=== PATIENT | female | born 1975 | race Caucasian/White ===

== ENCOUNTER → 2016-12-26 | Outpatient (CLI) | payer OTHER ==
--- NOTE | 2016-12-26 09:57 | Diagnostic Imaging Report ---
INDICATION: Abnormal exam bleeding. FINDINGS: The bladder is empty at the time of the exam and is not evaluated. Uterus is retroflexed and measures 10.5 x 8.5 x 6.8 CM. It has slightly heterogeneous myometrium with no discrete mass. The endometrial stripe is mildly thickened. The right ovary is 1.9 x 1.8 x 2.5 CM. The left ovary is 3.6 x 3 x 3.8 CM. 2.4 cm dominant follicle is seen with a small amount of free fluid is noted in the left adnexa. Arterial and venous waveforms are demonstrated in the ovaries. IMPRESSION: There is mild thickening of the endometrial stripe. Consider possibility of endometrial hyperplasia, polyp or less likely carcinoma. Dictated by: Dictated on workstation # [id number]
--- NOTE | 2016-12-26 10:24 | Diagnostic Imaging Report ---
PROCEDURE: US abdomen complete. TECHNIQUE: Multiple real-time grayscale images were obtained over the abdomen in various projections. INDICATION: Abdominal pain. FINDINGS: The area of the pancreas is obscured by bowel gas. The liver is fairly homogeneous with no focal mass. It is normal in size. The color Doppler evaluation demonstrates hepatopetal flow. The CBD is obscured by bowel gas. The gallbladder has been removed. The spleen is 11.3 cm in length, normal. The IVC and the abdominal aorta appear unremarkable. The right kidney is 9.2 cm. The left kidney is 12.0 cm. There is moderate left hydronephrosis. No ascites or other fluid collection seen in the abdomen. IMPRESSION: There is moderate left hydronephrosis. Findings were called to Dr. Opal Rodrigues by Dr. Gallego at time of dictation. Dictated by: Dictated on workstation # [id number]
== END ==
LOC: RAD 07:43
PROVIDERS: ATTEND Obstetrics & Gynecology
DX: N13.30 Unspecified hydronephrosis (principal)
CPT/HCPCS: 76700; 76830; 76856

== ENCOUNTER 2017-01-21 08:53 | Outpatient (CLI) | payer OTHER ==
[~2017-01-21] VITALS: Ht 172.7 cm; Wt 98.4 kg
[2017-01-21] MEDS ORDERED: MULT1TAB69 PO (09:04)
[2017-01-21] MEDS ORDERED: FERR-84 PO (09:04)
[2017-01-21] MEDS ORDERED: DOCU-143 PO (09:04)
[2017-01-21 09:06] VITALS: BP 127/87
[2017-01-21 09:30] LABS: BASOPHILS % (AUTO) 1 % (0-10); EOSINOPHILS % (AUTO) 1 % (0-10); LYMPHOCYTES # (AUTO) 2.2 X 10^3 (1.0-4.0); LYMPHOCYTES % (AUTO) 35 % (12-44); MEAN CORPUSCULAR HEMOGLOBIN 26 PG (25-34); MEAN CORPUSCULAR HGB CONC 33 G/DL (32-36); MEAN CORPUSCULAR VOLUME 79 FL (80-99); MEAN PLATELET VOLUME 9.9 FL (7.4-10.4); MONOCYTES # (AUTO) 0.4 X 10^3 (0.0-1.0); MONOCYTES % (AUTO) 6 % (0-12); NEUTROPHILS # (AUTO) 3.7 X 10^3 (1.8-7.8); NEUTROPHILS % (AUTO) 58 % (42-75); PLATELET COUNT 276 10^3/uL (130-400); RED BLOOD COUNT 4.73 10^6/uL (4.35-5.85); RED CELL DISTRIBUTION WIDTH 15.5 % (10.0-14.5); WHITE BLOOD COUNT 6.4 10^3/uL (4.3-11.0)
[2017-01-21 09:31] LABS: BILIRUBIN,URINE NEGATIVE (NEGATIVE); KETONES,URINE NEGATIVE (NEGATIVE); LEUKOCYTE ESTERASE ,URINE NEGATIVE (NEGATIVE); NITRITE,URINE NEGATIVE (NEGATIVE); PH,URINE 7 (5-9); PROTEIN,URINE 1+ (NEGATIVE); UROBILINOGEN,URINE NORMAL (NORMAL)
[2017-01-21 09:43] LABS: WBC,URINE RARE /HPF
== END 2017-01-21 09:25 | disposition home or self-care (01) ==
LOC: PREOP 08:53
PROVIDERS: ATTEND Obstetrics & Gynecology
DX: Z01.812 Encounter for preprocedural laboratory examination (principal); N92.0 Excessive and frequent menstruation with regular cycle; N81.9 Female genital prolapse, unspecified
CPT/HCPCS: 36415; 81000; 85025; 86850; 86900; 86901; 87081

== ENCOUNTER → 2017-01-21 | Outpatient (CLI) | payer OTHER ==
[~2017-01-21] MED LIST: CATHETER FLUSH 10 ML SYR IV PRN; DOCU-143 PO; FERR-84 PO; IOHEXOL 350 MG/ML 100 ML (OMNIPAQUE 350) VIAL IV ONE; MULT1TAB69 PO; NS 100 ML (IVPB) BAG IV ONE
[2017-01-21 08:43] LABS: ANION GAP 10 MMOL/L (5-14); BLOOD UREA NITROGEN 12 MG/DL (7-18); BUN/CREATININE RATIO 16; CALCIUM 9.3 MG/DL (8.5-10.1); CARBON DIOXIDE 24 MMOL/L (21-32); CHLORIDE 108 MMOL/L (98-107); CREATININE SERUM 0.75 MG/DL (0.60-1.30); GFR ESTIMATED > 60; GLUCOSE 117 MG/DL (70-105); POTASSIUM 3.6 MMOL/L (3.6-5.0); SODIUM 142 MMOL/L (135-145)
--- NOTE | 2017-01-21 12:56 | Diagnostic Imaging Report ---
PROCEDURE: CT abdomen and pelvis with and without contrast. TECHNIQUE: Precontrast acquisitions were acquired through the abdomen and pelvis. Multiple contiguous axial images were obtained through the abdomen and pelvis after the administration of intravenous contrast. INDICATION: History of nephrolithiasis, left hydronephrosis, pain and hemorrhage. FINDINGS: There is a calculus with a diameter of 4.1 mm distal third left ureter at the level of the anterosuperior iliac spine with a density of 272 Hounsfield units resulting in mild upstream hydronephrosis and mild to moderate ureteral ectasia. No substantial perinephric or periureteric edema. There is accumulation of contrast media within the dilated left renal collecting system but no appreciable excretion of contrast through the left ureter on the delayed acquisitions. In the left adnexa, below the level of the calculus, there is a somewhat tubular fluid structure measuring 2.1 cm in length by less than 1 cm in width. This may be a small left-sided hydrosalpinx. Urinary bladder was largely empty during the study limiting its evaluation. The right kidney was unobstructed and without stone. There is adjacent intrarenal calculi within the left lower pole calyx measuring about 2 mm diameter each. The lung bases are clear. The gallbladder is absent. There is mild hepatic steatosis. The liver is otherwise negative. The spleen nonfocal. The adrenals are negative. Pancreas appeared normal. Aortoiliac and mesenteric vessels are patent and nonaneurysmal. There is no bowel obstruction. Hyperdense nodule appears to be exophytic off the distal uterine body. Uterus retroflexed in this nodule measuring 12 mm, likely a mildly exophytic fibroid. Right adnexa normal. The osseous structures and the lung bases nonacute. IMPRESSION: A distal left ureteral calculus measuring 4.1 mm diameter results in relatively mild upstream hydroureteronephrosis without significant perinephric or periureteric edema. Additional punctate 2 mm stones within the left lower pole calyx present. The bladder is empty limiting its evaluation. Probable tiny exophytic fibroid off the fundus of the retroflexed uterus. Mild hepatic steatosis. Questionable findings for small left adnexal hydrosalpinx versus elongated ovarian cyst. Dictated by: Dictated on workstation # [id number]
== END ==
LOC: RAD 08:05
PROVIDERS: ATTEND Obstetrics & Gynecology
DX: N20.2 Calculus of kidney with calculus of ureter (principal); N83.9 Noninflammatory disorder of ovary, fallopian tube and broad ligament, unspecified; R10.9 Unspecified abdominal pain
CPT/HCPCS: 36415; 74178; 80048

== ENCOUNTER → 2017-01-27 | Outpatient (CLI) | payer OTHER ==
[~2017-01-27] MED LIST changes: -CATHETER FLUSH 10 ML SYR IV PRN; -IOHEXOL 350 MG/ML 100 ML (OMNIPAQUE 350) VIAL IV ONE; -NS 100 ML (IVPB) BAG IV ONE
--- NOTE | 2017-01-27 14:06 | Diagnostic Imaging Report ---
INDICATION: Nephrolithiasis. FINDINGS: The bowel gas pattern is nonspecific. There is a questionable punctate calcification overlying the left kidney. There are no other abnormal abdominal calcifications. The osseous structures are unremarkable. IMPRESSION: Questionable punctate calcification overlying the left kidney, otherwise unremarkable. Dictated by: Dictated on workstation # [id number]
== END ==
LOC: RAD 11:07
PROVIDERS: ATTEND Obstetrics & Gynecology
DX: N20.0 Calculus of kidney (principal)
CPT/HCPCS: 74000

== ENCOUNTER → 2017-02-13 | Outpatient (CLI) | payer OTHER ==
[~2017-02-13] MED LIST changes: +IOHEXOL 300 MG/ML 100 ML (OMNIPAQUE 300) VIAL IV ONE
--- NOTE | 2017-02-13 21:37 | Diagnostic Imaging Report ---
EXAMINATION: IVP. INDICATION: Hydronephrosis of left kidney. 100 mL of Omnipaque 300 is administered intravenously. FINDINGS: There is csjl-su-dvyrogys left hydronephrosis and mild hydroureter seen to the level of the pelvis. Contrast is seen in the distal aspect of the ureter which has normal caliber. No definitive stone is visualized on this exam along the ureter. There is a 3 mm stone suggested in the lower pole of the left kidney, however. Surgical clips in the upper right abdomen seen. The right kidney demonstrates no hydronephrosis. The urinary bladder appears unremarkable. IMPRESSION: There is htsj-dg-atcszsfk left hydronephrosis with transition of ureteric caliber in the upper aspect of the distal left ureter segment. No definitive stone is identified, however. There is contrast seen in the distal left ureter precluding complete obstruction. The stone seen on CT scan from 01/21/2017 in the distal ureter is not clearly identified on this exam; however, given hydroureteronephrosis, the stone might still be present. Correlate clinically and with an unenhanced CT evaluation. Dictated on workstation # [id number]
== END ==
LOC: RAD 10:08
PROVIDERS: ATTEND Obstetrics & Gynecology
DX: N13.30 Unspecified hydronephrosis (principal)
CPT/HCPCS: 74415

== ENCOUNTER 2017-04-18 12:03 | Outpatient (CLI) | payer OTHER ==
[~2017-04-18] VITALS: Ht 172.7 cm; Wt 100.7 kg
[~2017-04-18 12:03] MED LIST changes: -IOHEXOL 300 MG/ML 100 ML (OMNIPAQUE 300) VIAL IV ONE
[2017-04-18] MEDS ORDERED: HYDR-3812 PO (12:16)
[2017-04-18 12:26] VITALS: BP 142/86
[2017-04-18 12:52] LABS: BASOPHILS % (AUTO) 0 % (0-10); EOSINOPHILS % (AUTO) 1 % (0-10); LYMPHOCYTES % (AUTO) 29 % (12-44); MEAN CORPUSCULAR HEMOGLOBIN 26 PG (25-34); MEAN CORPUSCULAR HGB CONC 32 G/DL (32-36); MEAN CORPUSCULAR VOLUME 79 FL (80-99); MEAN PLATELET VOLUME 9.9 FL (7.4-10.4); MONOCYTES # (AUTO) 0.3 X 10^3 (0.0-1.0); MONOCYTES % (AUTO) 4 % (0-12); NEUTROPHILS # (AUTO) 4.7 X 10^3 (1.8-7.8); NEUTROPHILS % (AUTO) 66 % (42-75); PLATELET COUNT 292 10^3/uL (130-400); RED BLOOD COUNT 4.74 10^6/uL (4.35-5.85); RED CELL DISTRIBUTION WIDTH 14.2 % (10.0-14.5)
[2017-04-18 12:52] LABS: BILIRUBIN,URINE NEGATIVE (NEGATIVE); KETONES,URINE NEGATIVE (NEGATIVE); LEUKOCYTE ESTERASE ,URINE 3+ (NEGATIVE); NITRITE,URINE NEGATIVE (NEGATIVE); PH,URINE 5 (5-9); PROTEIN,URINE 1+ (NEGATIVE); UROBILINOGEN,URINE NORMAL (NORMAL)
== END 2017-04-18 15:00 | disposition home or self-care (01) ==
LOC: PREOP 12:03
PROVIDERS: ATTEND Obstetrics & Gynecology
DX: Z01.812 Encounter for preprocedural laboratory examination (principal); N92.0 Excessive and frequent menstruation with regular cycle; N81.9 Female genital prolapse, unspecified
CPT/HCPCS: 36415; 81000; 85025; 86850; 86900; 86901; 87081; 87088

== ENCOUNTER 2017-09-11 19:04 | Emergency (ER) | payer OTHER ==
[~2017-09-11] VITALS: Ht 172.7 cm; Wt 102.1 kg
[~2017-09-11 19:04] MED LIST changes: +ACHD5005 PO; +BENZ56AE2 TP; +DOCU100C37 PO; +Hydrocodone Bit/Acetaminophen PO; +IBUP-1773 PO; +SIME80TA16 PO
--- OUTSIDE RECORDS SUMMARY | 2017-09-11 19:10 | XMS REPORT | Continuity of Care Document ---
Author Author [employer] Organization [facility] Address Unknown Phone Unavailable Care Team Providers Care Promotional Model Name Role Phone [employer] Unavailable Unavailable Problems Medications Allergies, Adverse Reactions, Alerts Immunizations Results Vital Signs Encounters Location Location Details Encounter Type Encounter Number Reason For Visit Attending Provider ADM Date DC Date Status Source OP SURGERY [id number] ROBERT GALVAN 03/14/20172016 Active The [facility] O Active The [facility] Procedures Plan of Care Social History Assessment and Plan Family History Advance Directives Functional Status
--- OUTSIDE RECORDS SUMMARY | 2017-09-11 19:11 | XMS REPORT ---
Author Author CAROLINE VICTOR [facility] Address [address] [place] [address] Care Team Providers Care Manager Sap Name Role Phone CAROLINE VICTOR Unavailable PROBLEMS Type Condition ICD9-CM Code [id number] Code Onset Dates Condition Status SNOMED Code Problem Obesity (BMI 30.0-34.9) E66.9 Active 720163991690825 Problem Other chronic pain G89.29 Active 99574533 Problem Primary osteoarthritis of right knee M17.11 Active 492771958 Problem Primary osteoarthritis of left knee M17.12 Active 975013222 Problem Menorrhagia with irregular cycle N92.1 Active 127007971 Problem Irregular periods/menstrual cycles N92.6 Active 79321827 Problem Iron deficiency anemia due to chronic blood loss D50.0 Active 786798278 Problem Chondromalacia patellae, 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 Active 32025245 ALLERGIES No Information ENCOUNTERS Encounter Location Date Diagnosis [facility] [address] [id number] [id number] Jul, Dental examination Z01.20 [facility] [address] [id number] [id number] Jul, Dental examination Z01.20 [facility] [address] [id number][place] [id number] 13 Jul, 2017 [facility] [address] [id number][place] [id number] Jul, Dental examination Z01.20 [facility] [id number] [place] [id number] Jul, Dental caries K02.9 [facility] [address] [id number][place] [id number] Jul, Dental examination Z01.20 [facility] [address] [id number] [place] [id number] 15 Jul, 2017 Dental examination Z01.20 [facility] [address] [facility] [id number], [place] [phone] Jun, Primary osteoarthritis of right knee M17.11 and Primary osteoarthritis of left knee M17.12 [facility] [address] [facility] [id number], [place] [address] Jun, [facility] [address] [id number][place] [id number] Jan, [facility] [address] [id number][place] [id number] Jan, Irregular periods/menstrual cycles N92.6 ; Menorrhagia with irregular cycle N92.1 ; Dysuria R30.0 ; Hydronephrosis with urinary obstruction due to renal calculus N13.2 ; Acute cystitis with hematuria N30.01 and Iron deficiency anemia due to chronic blood loss D50.[address] [facility] [address] [id number][place] [id number] Jan, [facility] [address] [id number][place] [id number] Oct, [facility] [address] [id number], [place] [id number] Oct, [facility] [address] [id number], [place] [id number] Oct, [facility] [address] [id number], [place] [id number] Oct, [facility] [address] [id number], [place] [id number] Oct, [facility] [address] [id number], [place] [id number] Oct, Urinary frequency R35.[address] [facility] [address] [id number], [place] [id number] September, [facility] [address] [id number], [place] [id number] September, Acute cystitis with hematuria N30.01 [place] [address]00565100[place] [address] 13 Aug, 2016 Chondromalacia patellae, 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 [id number], [place] [id number] Jul, Obesity (BMI 30.0-34.9) E66.9 ; Encounter for Depo-Provera contraception Z30.42 ; Menorrhagia with irregular cycle N92.1 ; Breast cancer screening Z12.39 ; Dietary counseling Z71.3 ; Exercise counseling Z71.89 and History of abnormal cervical Pap smear Z87.898 [place] [address]00565100[place] [address] Jul, [place] [address] [place] [id number] [place] [address] 14 Jul, 2016 Pain in right knee M25.561 ; Pain in left knee M25.562 ; Other chronic pain G89.29 and Left hip pain M25.[address] [id number], [place] [id number] 09 Jul, 2016 Pain in right knee M25.561 ; Pain in left knee M25.562 ; Other chronic pain G89.29 and Left hip pain M25.552 [facility] [id number], [place] [id number] Jul, Low back strain, initial encounter S39.012A [facility] [address] [id number], [place] [id number] Jun, [facility] [employer] [place], [place] [address] [id number], [place] [id number] Jun, Obesity (BMI 30.0-34.9) E66.9 ; Discomfort in chest R07.89 ; Thyroid disorder screen Z13.29 and Screening cholesterol level Z13.[address] [id number], [place] [id number] Jun, Acute non-recurrent ethmoidal sinusitis J01.20 and Discomfort in chest R07.[address] [place] [id number] May, Acute infection of right external ear H60.391 and Ear ache H92.09 [place] [id number] [place] [id number] Apr, Acute nasopharyngitis J00 and Cough R05 [facility] [address] [place] [id number] [place] [id number] Mar, Dental examination Z01.20 [facility] [address] [id number] Mar, Dental examination Z01.20 [facility] [address] [place] [id number] [place] [address] Mar, Dental caries K02.9 [facility] [address] [address] 05 Mar, 2016 Dental examination Z01.20 [place] [id number] [place] [id number] September, Pain of left thigh M79.652 [place] [id number] [place] [id number] September, [address] [id number], [place] [id number] Aug, UTI symptoms R39.9 and Environmental and seasonal allergies J30.[id number] [place] [id number] Aug, Follow-up examination Z09 ; Cellulitis, unspecified L03.90 and Abscess L02.[address] [id number], [place] [id number] Aug, Spider bite T63.301A ; Wound abscess T81.4XXA ; Pain R52 and Follow-up examination Z09 [facility] [address] [id number], [place] [id number] Aug, Abscess of chest wall L02.[address] [facility] [address] [address] [id number], [place] [id number] 08 Sep, 2015 Insect bite W57.XXXA [facility] [address] [facility] [address] [id number], [place] [id number] Apr, Dental examination Z01.20 and Dental caries, unspecified K02.9 [facility] [address]00565100[place] [address] Aug, [facility] [address] [place] [id number] [place] [address] Aug, [facility] [place] [id number] [place] [id number] Jul, [facility] [address] [place] [id number] [place] [address] Jul, [facility] [id number] [place] [address] Jan, [facility] [place] [id number] [place] [id number] Jan, [facility] [place] [id number] [place] [id number] Oct, [facility] [id number] [place] [address] 8[address] Oct, [facility] [place] [id number], [place] [id number] Oct, [facility] [address] [place] [id number] [place] [phone] Oct, [facility] [place] [id number] [place] [address] [id number] Jul, [facility] [address] [place] [address] [id number] [place] [phone] Jul, [facility] [address] [place] 88185[place] [address] September, [facility] [address]00565100[place] [address] September, [facility] [id number], [place] [id number] Jul, [facility] [address]00565100[place], [place] [id number] Jul, [facility] [address]00565100[place], [place] [id number] Jun, [facility] [address] [place] [address] [id number] [place] [address]- [address] Jun, [facility] [address] [place] [id number] [place] [address]- [phone] Jun, [facility] [address]00565100[place], [place] [id number] Jun, [address] [place] [address] [id number] Jun, [facility] [address]00565100[place] [address] May, [facility] [id number] [place] [address]- [phone] May, [facility] [address]00565100[place] [address] Apr, IMMUNIZATIONS No Known Immunizations SOCIAL HISTORY Never Assessed REASON FOR VISIT meds PLAN OF CARE VITAL SIGNS MEDICATIONS No Known Medications RESULTS No Results PROCEDURES No Known procedures INSTRUCTIONS MEDICATIONS ADMINISTERED No Known Medications MEDICAL (GENERAL) HISTORY Type Description Date Medical History 1992-Cervical CA Medical History Left hydronephrosis -Abdominal US 11/2016 Surgical History tubal ligation Surgical History cholecystectomy Surgical History lithotripsy
--- OUTSIDE RECORDS SUMMARY | 2017-09-11 19:13 | XMS REPORT | Continuity of Care Document ---
Author Author [facility] Organization [facility] Address Unknown Phone Unavailable Allergies Active Description Code Type Severity Reaction Onset Reported/Identified Relationship to Patient Clinical Status Yes No Allergy Information Available [id number] Drug Allergy Unknown N/A 2016 Yes No Known Drug Allergies [id number] Drug Allergy Unknown N/A 04/18/2017 Medications There is no data. Problems Date Dx Coded Attending Type Code Diagnosis Diagnosed By 01/29/2011 388.70 earache 01/29/2011 626.2 excessive bleeding during period (menorrhagia) 01/29/2011 SAMAYOA DO, CHAI K 388.70 earache 01/29/2011 SAMAYOA DO, CHAI K 626.2 excessive bleeding during period (menorrhagia) 01/29/2011 SAMAYOA DO, CHAI K 388.70 earache 01/29/2011 SAMAYOA DO, CHAI K 626.2 excessive bleeding during period (menorrhagia) 01/29/2011 SAMAYOA DO, CHAI K 388.70 earache 01/29/2011 SAMAYOA DO, CHAI K 626.2 excessive bleeding during period (menorrhagia) 01/29/2011 SAMAYOA DO, CHAI K 388.70 earache 01/29/2011 SAMAYOA DO, CHAI K 626.2 excessive bleeding during period (menorrhagia) 01/29/2011 SAMAYOA DO, CHAI K 388.70 earache 01/29/2011 SAMAYOA DO, CHAI K 626.2 excessive bleeding during period (menorrhagia) 02/19/2011 278.00 OBESITY 02/19/2011 SAMAYOA DO, CHAI K 278.00 OBESITY 02/19/2011 SAMAYOA DO, CHAI K 278.00 OBESITY 02/19/2011 SAMAYOA DO, CHAI K 278.00 OBESITY 02/19/2011 SAMAYOA DO, CHAI K 278.00 OBESITY 02/19/2011 SAMAYOA DO, CHAI K 278.00 OBESITY 04/22/2011 V13.22 PERSONAL HISTORY OF CERVICAL DYSPLASIA 04/22/2011 SAMAYOA DO, CHAI K V13.22 PERSONAL HISTORY OF CERVICAL DYSPLASIA 04/22/2011 SAMAYOA DO, CHAI K V13.22 PERSONAL HISTORY OF CERVICAL DYSPLASIA 04/22/2011 SAMAYOA DO, CHAI K V13.22 PERSONAL HISTORY OF CERVICAL DYSPLASIA 04/22/2011 SAMAYOA DO, CHAI K V13.22 PERSONAL HISTORY OF CERVICAL DYSPLASIA 04/22/2011 SAMAYOA DO, CHAI K V13.22 PERSONAL HISTORY OF CERVICAL DYSPLASIA 06/18/2011 719.41 joint pain, localized in the right shoulder 06/18/2011 SAMAYOA DO, CHAI K 719.41 joint pain, localized in the right shoulder 06/18/2011 SAMAYOA DO, CHAI K 719.41 joint pain, localized in the right shoulder 06/18/2011 SAMAYOA DO, CHAI K 719.41 joint pain, localized in the right shoulder 06/18/2011 SAMAYOA DO, CHAI K 719.41 joint pain, localized in the right shoulder 06/18/2011 SAMAYOA DO, CHAI K 719.41 joint pain, localized in the right shoulder 10/12/2012 381.01 OTITIS MEDIA ACUTE SEROUS LEFT EAR 10/12/2012 SAMAYOA DO, CHAI K 381.01 OTITIS MEDIA ACUTE SEROUS LEFT EAR 10/12/2012 SAMAYOA DO, CHAI K 381.01 OTITIS MEDIA ACUTE SEROUS LEFT EAR 10/12/2012 SAMAYOA DO, CHAI K 381.01 OTITIS MEDIA ACUTE SEROUS LEFT EAR 10/12/2012 SAMAYOA DO, CHAI K 381.01 OTITIS MEDIA ACUTE SEROUS LEFT EAR 10/12/2012 SAMAYOA DO, CHAI K 381.01 OTITIS MEDIA ACUTE SEROUS LEFT EAR 08/05/2013 SAMAYOA DO, CHAI K 681.02 ONYCHIA AND PARONYCHIA OF FINGER 08/05/2013 SAMAYOA DO, CHAI K 681.02 ONYCHIA AND PARONYCHIA OF FINGER 08/05/2013 SAMAYOA DO, CHAI K 681.02 ONYCHIA AND PARONYCHIA OF FINGER 08/05/2013 SAMAYOA DO, CHAI K 681.02 ONYCHIA AND PARONYCHIA OF FINGER 08/05/2013 SAMAYOA DO, CHAI K 681.02 ONYCHIA AND PARONYCHIA OF FINGER 11/02/2013 SAMAYOA DO CHAI K 611.71 MASTODYNIA 11/02/2013 SAMAYOA DO CHAI K 611.71 MASTODYNIA 11/02/2013 SAMAYOA DO, CHAI K 611.71 MASTODYNIA 11/02/2013 SAMAYOA DO, CHAI K 611.71 MASTODYNIA 11/26/2013 SAMAYOA DO, CHAI K 599.0 URINARY TRACT INFECTION SITE NOT SPECIFIED 11/26/2013 SAMAYOA DO, CHAI K 599.0 URINARY TRACT INFECTION SITE NOT SPECIFIED 11/26/2013 SAMAYOA DO, CHAI K 599.0 URINARY TRACT INFECTION SITE NOT SPECIFIED 02/24/2014 SAMAYOA DO, CHAI K 461.0 ACUTE MAXILLARY SINUSITIS 02/24/2014 SAMAYOA DO, CHAI K 461.0 ACUTE MAXILLARY SINUSITIS 07/12/2014 SAMAYOA DO, CHAI K 465.9 ACUTE UPPER RESPIRATORY INFECTIONS OF UNSPECIFIED SITE 08/20/2016 Ot 726.10 BURSAE TENDONS DIS SHLDER NOS 08/20/2016 RASHEED DOMINGUEZ L MARBLE RUBBER Ot 611.71 MASTODYNIA 12/23/2016 RASHEED DOMINGUEZ L MARBLE RUBBER Ot 611.71 MASTODYNIA 01/01/2017 ALICEA DO BARNEY C Ot N13.30 UNSPECIFIED HYDRONEPHROSIS 01/08/2017 NANETTE DOMINGUEZCY L MARBLE RUBBER Ot 611.71 MASTODYNIA 01/08/2017 ALICEA DO, BARNEY C Ot N13.30 UNSPECIFIED HYDRONEPHROSIS 01/21/2017 ANGELICA RASHEED L MARBLE RUBBER Ot 611.71 MASTODYNIA 01/21/2017 ALICEA DO, BARNEY C Ot N13.30 UNSPECIFIED HYDRONEPHROSIS 01/21/2017 ALICEA DO, BARNEY C Ot N81.9 FEMALE GENITAL PROLAPSE, UNSPECIFIED 01/21/2017 ALICEA DO, BARNEY C Ot N92.0 EXCESSIVE AND FREQUENT MENSTRUATION WITH 01/21/2017 ALICEA DO, BARNEY C Ot Z01.812 ENCOUNTER FOR PREPROCEDURAL LABORATORY E 01/22/2017 ALICEA DO, BARNEY C Ot N81.9 FEMALE GENITAL PROLAPSE, UNSPECIFIED 01/22/2017 ALICEA DO, BARNEY C Ot N92.0 EXCESSIVE AND FREQUENT MENSTRUATION WITH 01/22/2017 ALICEA DO, BARNEY C Ot Z01.812 ENCOUNTER FOR PREPROCEDURAL LABORATORY E 01/23/2017 ALICEA DO, BARNEY C Ot N81.9 FEMALE GENITAL PROLAPSE, UNSPECIFIED 01/23/2017 ALICEA DO, BARNEY C Ot N92.0 EXCESSIVE AND FREQUENT MENSTRUATION WITH 01/23/2017 ALICEA DO BARNEY C Ot Z01.812 ENCOUNTER FOR PREPROCEDURAL LABORATORY E 01/27/2017 ALICEA DO BARNEY C Ot N81.9 FEMALE GENITAL PROLAPSE, UNSPECIFIED 01/27/2017 ALICEA DO BARNEY C Ot N92.0 EXCESSIVE AND FREQUENT MENSTRUATION WITH 01/27/2017 ALICEA DO BARNEY C Ot Z01.812 ENCOUNTER FOR PREPROCEDURAL LABORATORY E 02/05/2017 ALICEA DO BARNEY C Ot N20.0 CALCULUS OF KIDNEY 02/11/2017 ALICEA DO BARNEY C Ot N20.2 CALCULUS OF KIDNEY WITH CALCULUS OF URET 02/11/2017 ALICEA DO BARNEY C Ot N83.9 NONINFLAMMATORY DISORD OF OVARY, FALLOP 02/11/2017 ALICEA DO BARNEY C Ot R10.9 UNSPECIFIED ABDOMINAL PAIN 02/11/2017 ALICEA DO BARNEY C Ot N20.0 CALCULUS OF KIDNEY 02/13/2017 RASHEED DOMINGUEZ MARBLE RUBBER Ot 611.71 MASTODYNIA 02/13/2017 ALICEA DO BARNEY C Ot N13.30 UNSPECIFIED HYDRONEPHROSIS 02/13/2017 ALICEA DO BARNEY C Ot N20.2 CALCULUS OF KIDNEY WITH CALCULUS OF URET 02/13/2017 ALICEA DO BARNEY C Ot N83.9 NONINFLAMMATORY DISORD OF OVARY, FALLOP 02/13/2017 ALICEA DO BARNEY C Ot R10.9 UNSPECIFIED ABDOMINAL PAIN 02/13/2017 ALICEA DO BARNEY C Ot N20.0 CALCULUS OF KIDNEY 02/25/2017 ALICEA DO BARNEY C Ot N13.30 UNSPECIFIED HYDRONEPHROSIS 04/18/2017 ALICEA DO BARNEY C Ot N81.9 FEMALE GENITAL PROLAPSE, UNSPECIFIED 04/18/2017 ALICEA DO BARNEY C Ot N92.0 EXCESSIVE AND FREQUENT MENSTRUATION WITH 04/18/2017 ALICEA DO BARNEY C Ot Z01.812 ENCOUNTER FOR PREPROCEDURAL LABORATORY E 04/23/2017 DEANNE BAILEY BARNEY C Ot E66.9 OBESITY, UNSPECIFIED 04/23/2017 ALICEA DO BARNEY C Ot N73.6 FEMALE PELVIC PERITONEAL ADHESIONS (POST 04/23/2017 ALICEA DO, BARNEY C Ot N81.3 COMPLETE UTEROVAGINAL PROLAPSE 04/23/2017 ALICEA DO, BARNEY C Ot N81.4 UTEROVAGINAL PROLAPSE, UNSPECIFIED 04/23/2017 ALICEA DO, BARNEY C Ot 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 04/23/2017 ALICEA DO, BARNEY C Ot N92.1 EXCESSIVE AND FREQUENT MENSTRUATION WITH 04/23/2017 ALICEA DO, BARNEY C Ot Z23 ENCOUNTER FOR IMMUNIZATION 04/23/2017 ALICEA DO, BARNEY C Ot Z68.33 BODY MASS INDEX (BMI) 33.0-33.9, ADULT 04/23/2017 ALICEA DO, BARNEY C Ot Z79.899 OTHER INTERMEDIATE (CURRENT) DRUG THERAPY 04/24/2017 ALICEA DO BARNEY C Ot N81.9 FEMALE GENITAL PROLAPSE, UNSPECIFIED 04/24/2017 ALICEA DO, BARNEY C Ot N92.0 EXCESSIVE AND FREQUENT MENSTRUATION WITH 04/24/2017 ALICEA DO, BARNEY C Ot Z01.812 ENCOUNTER FOR PREPROCEDURAL LABORATORY E 05/21/2017 ALICEA DO BARNEY C Ot E66.9 OBESITY, UNSPECIFIED 05/21/2017 ALICEA DO, BARNEY C Ot N73.6 FEMALE PELVIC PERITONEAL ADHESIONS (POST 05/21/2017 ALICEA DO, BARNEY C Ot N81.3 COMPLETE UTEROVAGINAL PROLAPSE 05/21/2017 ALICEA DO BARNEY C Ot N81.4 UTEROVAGINAL PROLAPSE, UNSPECIFIED 05/21/2017 ALICEA DO, BARNEY C Ot 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 05/21/2017 ALICEA DO BARNEY C Ot N92.1 EXCESSIVE AND FREQUENT MENSTRUATION WITH 05/21/2017 ALICEA DO, BARNEY C Ot Z23 ENCOUNTER FOR IMMUNIZATION 05/21/2017 ALICEA DO, BARNEY C Ot Z68.33 BODY MASS INDEX (BMI) 33.0-33.9, ADULT 05/21/2017 ALICEA DO, BARNEY C Ot Z79.899 OTHER INTERMEDIATE (CURRENT) DRUG THERAPY 09/11/2017 RASHEED DOMINGUEZ MARBLE RUBBER Ot 611.71 MASTODYNIA 09/11/2017 ALICEA DO BARNEY C Ot N13.30 UNSPECIFIED HYDRONEPHROSIS 09/11/2017 BARNEY ALICEA DO Ot 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 CALCULUS OF KIDNEY WITH CALCULUS OF URET 09/11/2017 BARNEY ALICEA DO Ot N83.9 NONINFLAMMATORY DISORD OF OVARY, FALLOP 09/11/2017 BARNEY ALICEA DO Ot R10.9 UNSPECIFIED ABDOMINAL PAIN 09/11/2017 BARNEY ALICEA DO Ot N20.0 CALCULUS OF KIDNEY 09/11/2017 BARNEY ALICEA DO Ot N13.30 UNSPECIFIED HYDRONEPHROSIS Procedures Code [place] [address] MAMMOGRAM DX, LESVIA 11/02/2013 71064 UA LONG DIP 11/26/2013 56459 THERAPUTIC INJ SQ/IM 02/24/2014 J2930 SOLUMEDROL INJ 02/24/2014 99420 INFLUENZA A & B (IN-HOUSE) 07/12/2014 Results Test Result Range Complete blood count (CBC) with automated white blood cell (WBC) differential - 01/21/17 09:17 Blood leukocytes automated count (number/volume) 6.4 10*3/uL 4.3-11.0 Blood erythrocytes automated count (number/volume) 4.73 10*6/uL 4.35-5.85 Venous blood hemoglobin measurement (mass/volume) 12.2 g/dL 11.5-16.0 Blood hematocrit (volume fraction) 38 % 35-52 Automated erythrocyte mean corpuscular volume 79 [foz_us] 80-99 Automated erythrocyte mean corpuscular hemoglobin (mass per erythrocyte) 26 pg 25-34 Automated erythrocyte mean corpuscular hemoglobin concentration measurement ( mass/volume) 33 g/dL 32-36 Automated erythrocyte distribution width ratio 15.5 % 10.0-14.5 Automated blood platelet count (count/volume) 276 10*3/uL 130-400 Automated blood platelet mean volume measurement 9.9 [foz_us] 7.4-10.4 Automated blood neutrophils/100 leukocytes 58 % 42-75 Automated blood lymphocytes/100 leukocytes 35 % 12-44 Blood monocytes/100 leukocytes 6 % 0-12 Automated blood eosinophils/100 leukocytes 1 % 0-10 Automated blood basophils/100 leukocytes 1 % 0-10 Blood neutrophils automated count (number/volume) 3.7 10*3 1.8-7.8 Blood lymphocytes automated count (number/volume) 2.2 10*3 1.0-4.0 Blood monocytes automated count (number/volume) 0.4 10*3 0.0-1.0 Automated eosinophil count 0.0 10*3/uL 0.0-0.3 Automated blood basophil count (count/volume) 0.0 10*3/uL 0.0-0.1 Complete urinalysis with reflex to culture - 01/21/17 09:17 Urine color determination YELLOW NRG Urine clarity determination SLIGHTLY CLOUDY NRG Urine pH measurement by test strip 7 5-9 Specific gravity of urine by test strip 1.005 1.016- 1.022 Urine protein assay by test strip, semi-quantitative 1+ NEGATIVE Urine glucose detection by automated test strip NEGATIVE NEGATIVE Erythrocytes detection in urine sediment by light microscopy 1+ NEGATIVE Urine ketones detection by automated test strip NEGATIVE NEGATIVE Urine nitrite detection by test strip NEGATIVE NEGATIVE Urine total bilirubin detection by test strip NEGATIVE NEGATIVE Urine urobilinogen measurement by automated test strip (mass/volume) NORMAL NORMAL Urine leukocyte esterase detection by dipstick NEGATIVE NEGATIVE Automated urine sediment erythrocyte count by microscopy (number/high power field) [HPF] NRG Automated urine sediment leukocyte count by microscopy (number/high power field ) RARE NRG Bacteria detection in urine sediment by light microscopy NEGATIVE NRG Squamous epithelial cells detection in urine sediment by light microscopy 5-10 NRG Crystals detection in urine sediment by light microscopy NONE NRG Casts detection in urine sediment by light microscopy NONE NRG Mucus detection in urine sediment by light microscopy NEGATIVE NRG Complete urinalysis with reflex to culture NO NRG Blood type T Indirect antibody screen panel - 01/21/17 09:17 ABO+Rh group AP NRG Blood group antibody screen NEGATIVE NRG Methicillin resistant Staphylococcus aureus (MRSA) screening culture - 09:17 Methicillin resistant Staphylococcus aureus (MRSA) screening culture NEG NRG UA W/ MICROSCOPY - 02/18/17 15:20 COLOR TNP NRG CULTURE, URINE - 02/18/17 15:20 CULTURE, URINE, ROUTINE SEE NOTE NRG Methicillin resistant Staphylococcus aureus (MRSA) screening culture - 12:30 MRSA SCREEN RESULT MRSA ISOLATED NRG Complete blood count (CBC) with automated white blood cell (WBC) differential - 04/18/17 12:35 Blood leukocytes automated count (number/volume) 7.0 10*3/uL 4.3-11.0 Blood erythrocytes automated count (number/volume) 4.74 10*6/uL 4.35-5.85 Venous blood hemoglobin measurement (mass/volume) 12.2 g/dL 11.5-16.0 Blood hematocrit (volume fraction) 38 % 35-52 Automated erythrocyte mean corpuscular volume 79 [foz_us] 80-99 Automated erythrocyte mean corpuscular hemoglobin (mass per erythrocyte) 26 pg 25-34 Automated erythrocyte mean corpuscular hemoglobin concentration measurement ( mass/volume) 32 g/dL 32-36 Automated erythrocyte distribution width ratio 14.2 % 10.0-14.5 Automated blood platelet count (count/volume) 292 10*3/uL 130-400 Automated blood platelet mean volume measurement 9.9 [foz_us] 7.4-10.4 Automated blood neutrophils/100 leukocytes 66 % 42-75 Automated blood lymphocytes/100 leukocytes 29 % 12-44 Blood monocytes/100 leukocytes 4 % 0-12 Automated blood eosinophils/100 leukocytes 1 % 0-10 Automated blood basophils/100 leukocytes 0 % 0-10 Blood neutrophils automated count (number/volume) 4.7 10*3 1.8-7.8 Blood lymphocytes automated count (number/volume) 2.0 10*3 1.0-4.0 Blood monocytes automated count (number/volume) 0.3 10*3 0.0-1.0 Automated eosinophil count 0.0 10*3/uL 0.0-0.3 Automated blood basophil count (count/volume) 0.0 10*3/uL 0.0-0.1 Blood type T Indirect antibody screen panel - 04/18/17 12:35 ABO+Rh group AP NRG Blood group antibody screen NEGATIVE NRG Complete urinalysis with reflex to culture - 04/18/17 12:40 Urine color determination YELLOW NRG Urine clarity determination SLIGHTLY CLOUDY NRG Urine pH measurement by test strip 5 5-9 Specific gravity of urine by test strip 1.025 1.016- 1.022 Urine protein assay by test strip, semi-quantitative 1+ NEGATIVE Urine glucose detection by automated test strip NEGATIVE NEGATIVE Erythrocytes detection in urine sediment by light microscopy 2+ NEGATIVE Urine ketones detection by automated test strip NEGATIVE NEGATIVE Urine nitrite detection by test strip NEGATIVE NEGATIVE Urine total bilirubin detection by test strip NEGATIVE NEGATIVE Urine urobilinogen measurement by automated test strip (mass/volume) NORMAL NORMAL Urine leukocyte esterase detection by dipstick 3+ NEGATIVE Automated urine sediment erythrocyte count by microscopy (number/high power field) NONE NRG Automated urine sediment leukocyte count by microscopy (number/high power field ) [HPF] NRG Bacteria detection in urine sediment by light microscopy TRACE NRG Squamous epithelial cells detection in urine sediment by light microscopy 5-10 NRG Crystals detection in urine sediment by light microscopy NONE NRG Casts detection in urine sediment by light microscopy NONE NRG Mucus detection in urine sediment by light microscopy NEGATIVE NRG Complete urinalysis with reflex to culture YES NRG Bacterial urine culture - 04/18/17 12:40 Bacterial urine culture [id number] NRG COLONY COUNT <10,000 NRG FTX;REPORTABLE NO FURTHER STUDIES UNLESS REQUESTED NRG URINE CULTURE RESULTS PLUS NRG Urine beta human chorionic gonadotropin (hCG) measurement - 04/22/17 10:35 Urine beta human chorionic gonadotropin (hCG) measurement NEGATIVE NEGATIVE Blood type T Indirect antibody screen panel - 04/22/17 11:01 ABO+Rh group AP NRG Transfusion band number [id number] NRG Blood group antibody screen NEGATIVE NRG Complete blood count (CBC) with automated white blood cell (WBC) differential - 04/23/17 04:55 Blood leukocytes automated count (number/volume) 14.9 10*3/uL 4.3-11.0 Blood erythrocytes automated count (number/volume) 4.22 10*6/uL 4.35-5.85 Venous blood hemoglobin measurement (mass/volume) 10.8 g/dL 11.5-16.0 Blood hematocrit (volume fraction) 34 % 35-52 Automated erythrocyte mean corpuscular volume 81 [foz_us] 80-99 Automated erythrocyte mean corpuscular hemoglobin (mass per erythrocyte) 26 pg 25-34 Automated erythrocyte mean corpuscular hemoglobin concentration measurement ( mass/volume) 32 g/dL 32-36 Automated erythrocyte distribution width ratio 14.2 % 10.0-14.5 Automated blood platelet count (count/volume) 255 10*3/uL 130-400 Automated blood platelet mean volume measurement 10.1 [foz_us] 7.4-10.4 Automated blood neutrophils/100 leukocytes 89 % 42-75 Automated blood lymphocytes/100 leukocytes 6 % 12-44 Blood monocytes/100 leukocytes 5 % 0-12 Automated blood eosinophils/100 leukocytes 0 % 0-10 Automated blood basophils/100 leukocytes 0 % 0-10 Blood neutrophils automated count (number/volume) 13.2 10*3 1.8-7.8 Blood lymphocytes automated count (number/volume) 0.9 10*3 1.0-4.0 Blood monocytes automated count (number/volume) 0.7 10*3 0.0-1.0 Automated eosinophil count 0.0 10*3/uL 0.0-0.3 Automated blood basophil count (count/volume) 0.0 10*3/uL 0.0-0.1 Whole blood basic metabolic panel - 04/23/17 04:55 Serum or plasma sodium measurement (moles/volume) 141 mmol/L 135-145 Serum or plasma potassium measurement (moles/volume) 4.1 mmol/L 3.6-5.0 Serum or plasma chloride measurement (moles/volume) 111 mmol/L 98-107 Carbon dioxide 22 mmol/L 21-32 Serum or plasma anion gap determination (moles/volume) 8 mmol/L 5-14 Serum or plasma urea nitrogen measurement (mass/volume) 7 mg/dL 7-18 Serum or plasma creatinine measurement (mass/volume) 0.71 mg/dL 0.60-1.30 Serum or plasma urea nitrogen/creatinine mass ratio 10 NRG Serum or plasma creatinine measurement with calculation of estimated glomerular filtration rate > NRG Serum or plasma glucose measurement (mass/volume) 158 mg/dL 70-105 Serum or plasma calcium measurement (mass/volume) 8.7 mg/dL 8.5-10.1 Encounters ACCT No. Visit Date/Time Discharge Status Pt. Type Provider Facility Loc./Unit Complaint [id number] 04/22/2017 10:49:00 04/23/2017 17:50:00 DIS Outpatient BARNEY ALICEA DO [facility] SDC MENORRHAGIA,GENITAL PROLAPSE [id number] 04/18/2017 12:03:00 04/18/2017 15:00:00 DIS Outpatient BARNEY ALICEA DO [facility] PREOP MENORRHAGIA,GENITAL PROLAPSE [id number] 02/13/2017 10:08:00 02/13/2017 23:59:59 CLS Outpatient BARNEY ALICEA DO [facility] RAD HYDRONEPHROSIS OF LT KIDNEY N13.31 [id number] 01/28/2017 08:00:00 01/28/2017 23:59:59 CLS Preadmit BARNEY ALICEA DO Anastacia [facility] SDC MENORRHAGIA/GENITAL PROLAPSE [id number] 01/27/2017 11:07:00 01/27/2017 23:59:59 CLS Outpatient BARNEY ALICEA DO Anastacia [facility] RAD N20.0 [id number] 01/21/2017 08:05:00 01/21/2017 23:59:59 CLS Outpatient ALICEA BARNEY BAILEY Anastacia [facility] RAD HYDRONEPHROSIS LEFT, ABD PAIN [id number] 01/21/2017 08:53:00 01/21/2017 09:25:00 DIS Outpatient ALICEA BARNEY Anastacia [facility] PREOP MENORRHAGIA/GENITAL PROLAPSE [id number] 12/26/2016 07:43:00 12/26/2016 23:59:59 CLS Outpatient ALICEA BARNEY Anastacia [facility] RAD AND PAIN,AUB [id number] 11/10/2013 13:07:00 11/10/2013 23:59:59 CLS Outpatient ANGELICARASHEED Emily GELLER [facility] RAD BREAST PAIN [id number] 09/11/2017 19:05:00 ACT Emergency MAYNOR GAITAN DO [facility] ER ABD PAIN/KIDNEY PAIN,CONSTANT URINATION [id number] 07/02/2011 15:22:00 Document Registration [id number] 08/18/2017 13:00:00 08/18/2017 23:59:59 CLS Outpatient CAROLINE VICTOR APRN [facility] [id number] 02/18/2017 14:20:00 Document Registration [id number] 07/12/2014 14:28:00 07/12/2014 23:59:59 CLS Outpatient CHAI SAMAYOA DO [id number] 02/24/2014 08:50:00 02/24/2014 23:59:59 CLS Outpatient CHAI SAMAYOA DO [id number] 11/26/2013 10:31:00 11/26/2013 23:59:59 CLS Outpatient CHAI SAMAYOA DO [id number] 11/02/2013 10:34:00 11/02/2013 23:59:59 CLS Outpatient CHAI SAMAYOA DO [id number] 08/05/2013 09:06:00 08/05/2013 23:59:59 CLS Outpatient CHAI SAMAYOA DO [id number] 10/12/2012 14:56:00 Document Registration
[2017-09-11] MEDS ORDERED: LACTATED RINGERS 1,000 ML IV ONE (19:39)
[2017-09-11 19:48] LABS: CLARITY,URINE CLEAR; COLOR,URINE YELLOW; GLUCOSE, URINE (UA) NEGATIVE (NEGATIVE); KETONES,URINE NEGATIVE (NEGATIVE); LEUKOCYTE ESTERASE ,URINE 2+ (NEGATIVE); NITRITE,URINE NEGATIVE (NEGATIVE); PH,URINE 5 (5-9); PROTEIN,URINE 2+ (NEGATIVE); UROBILINOGEN,URINE 1 MG/DL (NORMAL)
--- NOTE | 2017-09-11 19:53 | ED GU-Female ---
General Stated Complaint: ABD PAIN/KIDNEY PAIN,CONSTANT URINATION Source: patient Exam Limitations: no limitations History of Present Illness Date Seen by Provider: Sep 11, 2017 Time Seen by Provider: 19:40 Initial Comments PT ARRIVES VIA POV FROM HOME C/O LOWER ABDOMINAL PAIN SINCE YESTERDAY HAS HAD SEVERE BILATERAL FLANK PAIN ALL DAY TODAY--RATES PAIN /10 HAS CHRONIC PROBLEMS WITH BLADDER FOR OVER A YEAR, HAD HYST WITH BLADDER SLING/ SUSPENSION 04/2017. SINCE SURGERY SHE HAS HAD CONTINUED URINARY URGENCY, FREQUENCY AND SMALL AMOUNTS/DRIBBLES--STATES SHE URINATES AT LEAST 30 TIMES A DAY AND IS UP ALL NIGHT URINATING. PT ALSO HAS HISTORY OF KIDNEY STONES--LAST EPISODE WAS 03/2017--HAS HAD STONE RETRIEVAL AND URETERAL STENT, IN ADDITION TO LITHOTRIPSY. NO FEVER NO NAUSEA/VOMITING/DIARRHEA CALLED DR. ALICEA'S OFFICE, BUT CANNOT GET IN TO SEE HER UNTIL 10/02/17. VASCULAR TECH: DR. ALICEA Allergies and Home Medications Allergies Coded Allergies: No Known Drug Allergies (Unverified , 04/18/17) Home Medications Cyclobenzaprine HCl 10 Mg Tablet, 10 MG PO Q8H Prescribed by: MAYNOR GAITAN on 09/11/172214 Hyoscyamine Sulfate 0.125 Mg Tab.subl, 1-2 TAB SL Q4H Prescribed by: MAYNOR GAITAN on 09/11/172214 Levofloxacin 500 Mg Tablet, 500 MG PO DAILY Prescribed by: MAYNOR GAITAN on 09/11/172214 Meloxicam 15 Mg Tablet, 15 MG PO DAILY Prescribed by: MAYNOR GAITAN on 09/11/172214 Tramadol HCl 50 Mg Tablet, 50 MG PO Q4H Prescribed by: MAYNOR GAITAN on 09/11/172214 Patient Home Medication List Home Medication List Reviewed: Yes Review of Systems Constitutional: no symptoms reported Respiratory: no symptoms reported Cardiovascular: no symptoms reported Gastrointestinal: see HPI, abdominal pain; No diarrhea; loss of appetite; No nausea, No vomiting Genitourinary: see HPI Musculoskeletal: see HPI, back pain Skin: no symptoms reported Psychiatric/Neurological: Depressed (ONGING PROBLEMS), Other (UNABLE TO SLEEP DUE TO BEING UP ALL NIGHT GOING TO BATHROOM) Endocrine: No Symptoms Reported Hematologic/Lymphatic: No Symptoms Reported Past Bgfxuua-Xhilrw-Qewtit Hx Patient Social History Alcohol Use: Denies Use Recreational Drug Use: No Smoking Status: Never a Smoker Recent Foreign Travel: No Contact w/Someone Who Travel: No Recent Hopitalizations: No Seasonal Allergies Seasonal Allergies: No Past Medical History Surgeries: Yes (HYST / OVARIES INTACT; BLADDER SLING/SUSPENSION; KIDNEY STONE REMOVAL AND URETERAL STENT; LITHOTRIPSY) Bladder Surgery, Gallbladder, Hysterectomy, Renal, Tubal Ligation Respiratory: No Cardiac: No Neurological: No : No Reproductive Disorders: Yes (MENORRHAGIA, GENITAL PROLAPSE) Female Reproductive Disorders: Menstrual Problems VASCULAR TECH History: Hysterectomy, Tubal Ligation Sexually Transmitted Disease: No HIV/AIDS: No Genitourinary: Yes Bladder Infection, Kidney Stones Gastrointestinal: Yes Chronic Constipation, Diverticulosis (NOTED ON CT --NO EPISODES OF DIVERTICULITIS) Musculoskeletal: No Endocrine: No HEENT: No Cancer: No Did You Recieve Any Treatments: No Psychosocial: No Integumentary: No Adverse Reaction/Blood Tranf: No (N/A) Physical Exam Vital Signs Vital Signs - First Documented 09/11/17 19:36 Temp 98.4 Pulse 91 Resp 20 B/P (MAP) 117/111 (113) Pulse Ox 100 O2 Delivery Room Air Capillary Refill : General Appearance: WD/WN, no apparent distress Cardiovascular: normal peripheral pulses, regular rate, rhythm, no murmur Respiratory: normal breath sounds, no respiratory distress, no accessory muscle use Gastrointestinal: normal bowel sounds, soft, no organomegaly, no pulsatile mass , tenderness (SUPRAPUBIC AREA) Back: CVA tenderness (R), CVA tenderness (L) Extremities: normal inspection, no pedal edema, normal capillary refill 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, no motor/sensory deficits, alert, oriented x 3, depressed affect Skin: normal color, warm/dry Progress/Results/Core Measures Suspected Sepsis SIRS Temperature: Pulse: Respiratory Rate: Laboratory Tests 09/11/17 19:42: White Blood Count 9.1 Blood Pressure / Mean: Laboratory Tests 09/11/17 19:42: Creatinine 0.82, Platelet Count 292, Total Bilirubin 0.4 Results/Orders Lab Results Laboratory Tests Test 09/11/17 19:38 09/11/17 19:42 Range/Units Urine Color YELLOW Urine Clarity CLEAR Urine pH 5 5-9 Urine Specific [place] 1.025 H 1.016-1.022 Urine Protein 2+ H NEGATIVE Urine Glucose (UA) NEGATIVE NEGATIVE Urine Ketones NEGATIVE NEGATIVE Urine Nitrite NEGATIVE NEGATIVE Urine Bilirubin 1+ H NEGATIVE Urine Urobilinogen 1 NORMAL MG/DL Urine Leukocyte Esterase 2+ H NEGATIVE Urine RBC (Auto) 2+ H NEGATIVE Urine RBC 0-2 /HPF Urine WBC 5-10 H /HPF Urine Squamous Epithelial Cells 10-25 H /HPF Urine Crystals PRESENT H /LPF Urine Calcium Oxalate Crystals LARGE H /LPF Urine Bacteria FEW H /HPF Urine Casts NONE /LPF Urine Mucus LARGE H /LPF Urine Yeast FEW H /HPF Urine Culture Indicated YES Urine Opiates Screen POSITIVE H NEGATIVE Urine Oxycodone Screen NEGATIVE NEGATIVE Urine Methadone Screen NEGATIVE NEGATIVE Urine Propoxyphene Screen NEGATIVE NEGATIVE Urine Barbiturates Screen NEGATIVE NEGATIVE Ur Tricyclic Antidepressants Screen NEGATIVE NEGATIVE Urine Phencyclidine Screen NEGATIVE NEGATIVE Urine Amphetamines Screen NEGATIVE NEGATIVE Urine Methamphetamines Screen NEGATIVE NEGATIVE Urine Benzodiazepines Screen POSITIVE H NEGATIVE Urine Cocaine Screen NEGATIVE NEGATIVE Urine Cannabinoids Screen NEGATIVE NEGATIVE White Blood Count 9.1 4.3-11.0 10^3/uL Red Blood Count 5.09 4.35-5.85 10^6/uL Hemoglobin 13.4 11.5-16.0 G/DL Hematocrit 40 35-52 % Mean Corpuscular Volume 79 L 80-99 FL Mean Corpuscular Hemoglobin 26 25-34 PG Mean Corpuscular Hemoglobin Concent 33 32-36 G/DL Red Cell Distribution Width 16.9 H 10.0-14.5 % Platelet Count 292 130-400 10^3/uL Mean Platelet Volume 10.2 7.4-10.4 FL Neutrophils (%) (Auto) 51 42-75 % Lymphocytes (%) (Auto) 40 12-44 % Monocytes (%) (Auto) 7 0-12 % Eosinophils (%) (Auto) 1 0-10 % Basophils (%) (Auto) 0 0-10 % Neutrophils # (Auto) 4.6 1.8-7.8 X 10^3 Lymphocytes # (Auto) 3.6 1.0-4.0 X 10^3 Monocytes # (Auto) 0.7 0.0-1.0 X 10^3 Eosinophils # (Auto) 0.1 0.0-0.3 10^3/uL Basophils # (Auto) 0.0 0.0-0.1 10^3/uL Sodium Level 141 135-145 MMOL/L Potassium Level 3.5 L 3.6-5.0 MMOL/L Chloride Level 109 H 98-107 MMOL/L Carbon Dioxide Level 23 21-32 MMOL/L Anion Gap 9 5-14 MMOL/L Blood Urea Nitrogen 16 7-18 MG/DL Creatinine 0.82 0.60-1.30 MG/DL Estimat Glomerular Filtration Rate > 60 BUN/Creatinine Ratio 20 Glucose Level 98 70-105 MG/DL Calcium Level 9.3 8.5-10.1 MG/DL Total Bilirubin 0.4 0.1-1.0 MG/DL Aspartate Amino Transf (AST/SGOT) 28 5-34 U/L Alanine Aminotransferase (ALT/SGPT) 41 0-55 U/L Alkaline Phosphatase 62 40-136 U/L Total Protein 8.2 6.4-8.2 GM/DL Albumin 4.4 3.2-4.5 GM/DL My Orders Orders - MAYNOR GAITAN DO Cbc With Automated Diff (09/11/17 19:39) Comprehensive Metabolic Panel (09/11/17 19:39) Drug Screen Stat (Urine) (09/11/17 19:39) Ua Culture If Indicated (09/11/17 19:39) Saline Lock/Iv-Start (09/11/17 19:39) Saline Lock/Iv-Start (09/11/17 19:39) Lactated Ringers (Lr 1000 Ml Iv Solution (09/11/17 19:39) Ketorolac Injection (Toradol Injection) (09/11/17 20:00) Urine Culture (09/11/17 19:38) Ct Abd/Pelvis Wo(Kidney Stone) (09/11/17 20:03) Abdomen/Kub 1[place] (09/11/17 20:03) Orphenadrine Injection (Norflex Injectio (09/11/17 21:15) Ceftriaxone Injection (Rocephin Injectio (09/11/17 21:15) Rx-Ondansetron Po (Rx-Zofran Po) (09/11/17 21:24) Rx-Tramadol Hcl (Rx-Ultram) (09/11/17 22:10) Rx-Cyclobenzaprine Tablet (Rx-Flexeril T (09/11/17 22:10) Rx-Levofloxacin (Rx-Levaquin) (09/11/17 22:10) Rx-Hyoscyamine Tab (Rx-Levsin Sl) (09/11/17 22:10) Medications Given in ED Current Medications Medications Dose Ordered Sig/Nii Route Start Time Stop Time Status Last Admin Dose Admin Ceftriaxone Sodium 1000 mg/ Sodium Chloride 100 ml @ 200 mls/hr ONCE ONCE IV 09/11/17 21:15 09/11/17 21:44 DC 09/11/17 21:29 200 MLS/HR Ketorolac Tromethamine 30 mg ONCE ONCE IVP 09/11/17 20:00 09/11/17 20:01 DC 09/11/17 20:01 30 MG Lactated Ringer's 1,000 ml @ 0 mls/hr Q0M ONCE IV 09/11/17 19:39 09/11/17 19:41 DC 09/11/17 20:01 999 MLS/HR Orphenadrine Citrate 60 mg ONCE ONCE IV 09/11/17 21:15 09/11/17 21:16 DC 09/11/17 21:29 60 MG Vital Signs/I&O 09/11/17 09/11/17 19:36 22:26 Temp 98.4 98.4 Pulse 91 91 Resp 20 20 B/P (MAP) 117/111 (113) 124/88 (113) Pulse Ox 100 100 O2 Delivery Room Air Capillary Refill : Progress Note : Progress Note SYMPTOMS IMPROVED AT DISMISSAL Diagnostic Imaging Comments CT ABDOMEN/PELVIS--NO ACUTE PROCESS, TINY STONE IN RIGHT KIDNEY, MILD DIVERTICULAR DISEASE WITHOUT ACUTE DIVERTICULITIS, POST OP CHANGES / HYSTERECTOMY--PER RADIOLOGIST REPORT @ [id number] Reviewed: Reviewed by Me Departure Impression Primary Impression: Urinary tract infection Disposition: 01 HOME, SELF-CARE Condition: Stable Departure-Patient Inst. Referrals: [facility] (PCP) Primary Care Physician BARNEY ALICEA DO Patient Instructions: Urinary Tract Infection, Adult (DC) Add. Discharge Instructions: LOTS OF CLEAR LIQUIDS--NO COFFEE, POP OR TEA CONTINUE YOUR CURRENT MEDICATIONS PRESCRIBED FOLLOW UP WITH DR. ALICEA IN 2-3 DAYS FOR FURTHER CARE Scripts Tramadol HCl (Ultram) 50 Mg Tablet 50 MG PO Q4H, #20 TAB Prov: MAYNOR GAITAN DO 09/11/17 Meloxicam (Mobic) 15 Mg Tablet 15 MG PO DAILY, #10 TAB Prov: MAYNOR GAITAN DO 09/11/17 Hyoscyamine Sulfate (Levsin-Sl) 0.125 Mg Tab.subl 1-2 TAB SL Q4H for Abdominal Pain, #15 TAB Prov: MAYNOR GAITAN DO 09/11/17 Cyclobenzaprine HCl (Cyclobenzaprine HCl) 10 Mg Tablet 10 MG PO Q8H, #15 TAB Prov: MAYNOR GAITAN DO 09/11/17 Levofloxacin (Levaquin) 500 Mg Tablet 500 MG PO DAILY for INFECTION, #10 TAB Prov: MAYNOR GAITAN DO 09/11/17 MAYNOR GAITAN DO Sep 11, 2017 19:53
[2017-09-11 19:59] LABS: AMPHETAMINE SCREEN, URINE NEGATIVE (NEGATIVE); BARBITURATE SCREEN URINE NEGATIVE (NEGATIVE); BENZODIAZEPINES SCREEN URINE POSITIVE (NEGATIVE); BILIRUBIN,URINE 1+ (NEGATIVE); CANNABINOID SCREEN, URINE NEGATIVE (NEGATIVE); COCAINE SCREEN URINE NEGATIVE (NEGATIVE); METHADONE STAT NEGATIVE (NEGATIVE); METHAMPHETAMINE SCREEN URINE S NEGATIVE (NEGATIVE); OPIATE SCREEN URINE POSITIVE (NEGATIVE); OXYCODONE STAT NEGATIVE (NEGATIVE); PROPOXYPHENE STAT NEGATIVE (NEGATIVE); TRICYCLIC ANTIDEPRESSANTS SCRE NEGATIVE (NEGATIVE)
[2017-09-11 20:00] LABS: BACTERIA,URINE FEW /HPF; CALCIUM OXALATE CRYSTALS,UR LARGE /LPF; RBC,URINE 0-2 /HPF; YEAST,URINE FEW /HPF
[2017-09-11] MEDS ORDERED: KETOROLAC 30 MG/ML VIAL IVP ONE (20:00)
[2017-09-11 20:02] LABS: BASOPHILS % (AUTO) 0 % (0-10); EOSINOPHILS # (AUTO) 0.1 10^3/uL (0.0-0.3); EOSINOPHILS % (AUTO) 1 % (0-10); HEMATOCRIT 40 % (35-52); HEMOGLOBIN 13.4 G/DL (11.5-16.0); LYMPHOCYTES # (AUTO) 3.6 X 10^3 (1.0-4.0); LYMPHOCYTES % (AUTO) 40 % (12-44); MEAN CORPUSCULAR HEMOGLOBIN 26 PG (25-34); MEAN CORPUSCULAR HGB CONC 33 G/DL (32-36); MEAN CORPUSCULAR VOLUME 79 FL (80-99); MEAN PLATELET VOLUME 10.2 FL (7.4-10.4); MONOCYTES # (AUTO) 0.7 X 10^3 (0.0-1.0); MONOCYTES % (AUTO) 7 % (0-12); NEUTROPHILS # (AUTO) 4.6 X 10^3 (1.8-7.8); NEUTROPHILS % (AUTO) 51 % (42-75); PLATELET COUNT 292 10^3/uL (130-400); RED BLOOD COUNT 5.09 10^6/uL (4.35-5.85); RED CELL DISTRIBUTION WIDTH 16.9 % (10.0-14.5); WHITE BLOOD COUNT 9.1 10^3/uL (4.3-11.0)
[2017-09-11] MEDS ORDERED: RX-ONDANSETRON 4 MG ODT (ZOFRAN) PPK #4 PO STA (20:06)
[2017-09-11 20:26] LABS: ALANINE AMINOTRANSFERASE 41 U/L (0-55); ALBUMIN 4.4 GM/DL (3.2-4.5); ALKALINE PHOSPHATASE 62 U/L (40-136); BILIRUBIN,TOTAL 0.4 MG/DL (0.1-1.0); CALCIUM 9.3 MG/DL (8.5-10.1); CARBON DIOXIDE 23 MMOL/L (21-32); CHLORIDE 109 MMOL/L (98-107); GLUCOSE 98 MG/DL (70-105); POTASSIUM 3.5 MMOL/L (3.6-5.0); SODIUM 141 MMOL/L (135-145); TOTAL PROTEIN 8.2 GM/DL (6.4-8.2)
[2017-09-11 20:43] LABS: BUN/CREATININE RATIO 20; CREATININE SERUM 0.82 MG/DL (0.60-1.30); GFR ESTIMATED > 60
[2017-09-11] MEDS ORDERED: cefTRIAXone INJECTION 1,000 MG in NS (IVPB) 100 ML IV ONE (21:15)
[2017-09-11] MEDS ORDERED: ORPHENADRINE 60 MG/2 ML (NORFLEX) AMP IV ONE (21:15)
[2017-09-11] MEDS ORDERED: RX-ONDANSETRON 4 MG ODT (ZOFRAN) PPK #4 ONE (21:24)
--- NOTE | 2017-09-11 21:43 | Diagnostic Imaging Report ---
PROCEDURE: CT urinary tract, rule out kidney stone. TECHNIQUE: Multiple contiguous axial images were obtained through the abdomen and pelvis without the use of intravenous contrast. INDICATION: Abdominal pain. FINDINGS: The previous CT abdomen/pelvis exam of 01/21/2017 noted partial obstruction of the left collecting system due to a 4.1 mm calculus in the distal left ureter. On this study, there is no evidence for an obstruction of either collecting system. There is a minute 1 mm nonobstructive calculus within the right kidney. The urinary bladder is grossly unremarkable. In the interval since the prior study, the patient has undergone a hysterectomy. There is a small amount of fluid in the pelvis. This is nonspecific. There are few diverticula in the sigmoid colon but there is no clear evidence for an acute diverticulitis. The appendix was visualized and is not abnormally thickened. The liver is homogeneous and not enlarged. The spleen, pancreas, adrenals, aorta and inferior vena cava are unremarkable for an acute abnormality. As noted on the prior exam, the gallbladder is surgically absent. The stomach is not well-distended and consequently difficult to assess. The lung bases are clear. The bone window show no evidence for a fracture or for a destructive lesion. IMPRESSION: 1. There is a minute nonobstructive calculus within the right kidney. There is no sign of obstruction of either collecting system. 2. In the interval since the prior exam, the patient has undergone a hysterectomy. There is a small amount of nonspecific free fluid in the pelvis. 3. There is diverticulosis of the sigmoid colon but there is no clear evidence for an acute diverticulitis. Dictated by: Dictated on workstation # [id number]
--- NOTE | 2017-09-11 22:02 | Diagnostic Imaging Report ---
EXAMINATION: Supine abdomen INDICATION: Abdominal pain Two supine views were obtained. There is some gas in both the large and small bowel in a nonspecific fashion. This appearance is similar to the prior exam of 02/13/2017. There is no evidence for bowel obstruction. There is a considerable amount of fecal material throughout the colon. There is no mass, organomegaly or pathological calcification evident. Surgical clips are again seen in the right upper quadrant. The osseous structures are intact. IMPRESSION: 1. The bowel gas pattern is nonspecific. There is no acute abnormality identified. 2. There is a considerable amount of fecal material throughout the colon. Dictated by: Dictated on workstation # [id number]
[2017-09-11] MEDS ORDERED: RX-LEVOFLOXACIN 500 MG (LEVAQUIN) TAB #1 PPK PO STA (22:10)
[2017-09-11] MEDS ORDERED: RX-TRAMADOL 50 MG (ULTRAM) TAB PPK#4 PO STA (22:10)
[2017-09-11] MEDS ORDERED: RX-CYCLOBENZAPRINE 10 MG (FLEXERIL) TAB PPK#3 PO STA (22:10)
[2017-09-11] MEDS ORDERED: RX-HYOSCYAMINE 0.125 MG SL (LEVSIN) PPK#6 SL STA (22:10)
[2017-09-11] MEDS ORDERED: MELO15TA14 PO (22:15)
[2017-09-11] MEDS ORDERED: LEVO500T2 PO (22:15)
[2017-09-11] MEDS ORDERED: CYCL10TA9 PO (22:15)
[2017-09-11] MEDS ORDERED: TRAM-42 PO (22:15)
[2017-09-11] MEDS ORDERED: HYOS0.1283 SL (22:15)
[2017-09-11 22:26] VITALS: BP 124/88
[2017-09-19] MEDS ORDERED: HYDR-3990 PO (09:43)
[2017-09-19] MEDS ORDERED: DOCU-143 PO (09:43)
== END 2017-09-11 22:27 | disposition home or self-care (01) ==
LOC: EDUNIT# 19:04 → ER 19:05
DX: N39.0 Urinary tract infection, site not specified (principal); Z90.710 Acquired absence of both cervix and uterus; Z96.0 Presence of urogenital implants; Z87.442 Personal history of urinary calculi; Z98.51 Tubal ligation status; Z87.19 Personal history of other diseases of the digestive system
CPT/HCPCS: 36415; 74018; 74176; 80053; 80306; 81000; 85025; 87088; 96365; 96375

== ENCOUNTER 2017-09-17 19:23 | Emergency (ER) | payer OTHER ==
[~2017-09-17] VITALS: Ht 172.7 cm; Wt 82.6 kg
[~2017-09-17 19:23] MED LIST changes: +CYCL10TA9 PO; +HYOS0.1283 SL; +LEVO500T2 PO; +MELO15TA14 PO; +TRAM-42 PO
[2017-09-17 19:44] LABS: BASOPHILS # (AUTO) 0.1 10^3/uL (0.0-0.1); BASOPHILS % (AUTO) 1 % (0-10); EOSINOPHILS # (AUTO) 0.1 10^3/uL (0.0-0.3); EOSINOPHILS % (AUTO) 1 % (0-10); HEMATOCRIT 41 % (35-52); HEMOGLOBIN 13.6 G/DL (11.5-16.0); LYMPHOCYTES # (AUTO) 3.3 X 10^3 (1.0-4.0); LYMPHOCYTES % (AUTO) 32 % (12-44); MEAN CORPUSCULAR HEMOGLOBIN 27 PG (25-34); MEAN CORPUSCULAR HGB CONC 34 G/DL (32-36); MEAN CORPUSCULAR VOLUME 79 FL (80-99); MEAN PLATELET VOLUME 9.8 FL (7.4-10.4); MONOCYTES # (AUTO) 0.6 X 10^3 (0.0-1.0); MONOCYTES % (AUTO) 6 % (0-12); NEUTROPHILS # (AUTO) 6.3 X 10^3 (1.8-7.8); NEUTROPHILS % (AUTO) 60 % (42-75); PLATELET COUNT 352 10^3/uL (130-400); RED BLOOD COUNT 5.11 10^6/uL (4.35-5.85); RED CELL DISTRIBUTION WIDTH 16.8 % (10.0-14.5); WHITE BLOOD COUNT 10.4 10^3/uL (4.3-11.0)
[2017-09-17] MEDS ORDERED: KETOROLAC 30 MG/ML VIAL IVP ONE (19:45)
[2017-09-17] MEDS ORDERED: NS IV 1000 ML 1,000 ML IV SCH (19:45)
--- NOTE | 2017-09-17 19:49 | ED General ---
General Stated Complaint: HEAD PAIN Source of Information: Patient Exam Limitations: No Limitations History of Present Illness Date Seen by Provider: Sep 17, 2017 Time Seen by Provider: 19:47 Initial Comments To ER with reports of an occipital right-sided headache, tingling in both of her arms, shakiness for the past few days. Just before this she was seen here in the emergency room diagnosed with urinary tract infection and started on Levaquin. After noticing these symptoms she stop the Levaquin briefly and her symptoms did improve. However the urinary symptoms return so she restarted it in her symptoms again worsened. Timing/Duration: 2-3 Days Severity: Moderate Allergies and Home Medications Allergies Coded Allergies: No Known Drug Allergies (Unverified , 04/18/17) Home Medications Cyclobenzaprine HCl 10 Mg Tablet, 10 MG PO Q8H Prescribed by: MAYNOR GAITAN on 09/11/172214 Hyoscyamine Sulfate 0.125 Mg Tab.subl, 1-2 TAB SL Q4H Prescribed by: MAYNOR GAITAN on 09/11/172214 Levofloxacin 500 Mg Tablet, 500 MG PO DAILY Prescribed by: MAYNOR GAITAN on 09/11/172214 Meloxicam 15 Mg Tablet, 15 MG PO DAILY Prescribed by: MAYNOR GAITAN on 09/11/172214 Tramadol HCl 50 Mg Tablet, 50 MG PO Q4H Prescribed by: MAYNOR GAITAN on 09/11/172214 Patient Home Medication List Home Medication List Reviewed: Yes Review of Systems Constitutional: see HPI EENTM: see HPI Respiratory: no symptoms reported Cardiovascular: no symptoms reported Genitourinary: no symptoms reported Musculoskeletal: no symptoms reported Skin: no symptoms reported Psychiatric/Neurological: See HPI, Paresthesia Hematologic/Lymphatic: No Symptoms Reported Immunological/Allergic: no symptoms reported Past Fctoahn-Tlnuxe-Wkiprx Hx Patient Social History Recent Foreign Travel: No Contact w/Someone Who Travel: No Recent Hopitalizations: No Seasonal Allergies Seasonal Allergies: No Past Medical History Surgeries: Yes Bladder Surgery, Gallbladder, Hysterectomy, Renal, Tubal Ligation Respiratory: No Cardiac: No Neurological: No Reproductive Disorders: Yes (MENORRHAGIA, GENITAL PROLAPSE) Female Reproductive Disorders: 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, Tubal Ligation Sexually Transmitted Disease: No HIV/AIDS: No Genitourinary: Yes Bladder Infection, Kidney Stones Gastrointestinal: Yes Chronic Constipation, Diverticulosis Musculoskeletal: No Endocrine: No HEENT: No Cancer: No Did You Recieve Any Treatments: No Psychosocial: No Integumentary: No Blood Disorders: Yes (anemia) Adverse Reaction/Blood Tranf: No (N/A) Physical Exam Vital Signs Vital Signs - First Documented 09/17/17 19:30 Temp 98.0 Pulse 114 Resp 18 B/P (MAP) 138/94 (109) Pulse Ox 99 Capillary Refill : General Appearance: No Apparent Distress, WD/WN Eyes: Bilateral Eye Normal Inspection, Bilateral Eye PERRL, Bilateral Eye EOMI HEENT: PERRL/EOMI, TMs Normal Neck: Full Range of Motion, Normal Inspection Respiratory: No Accessory Muscle Use, No Respiratory Distress Cardiovascular: Regular Rate, Rhythm, Normal Peripheral Pulses Gastrointestinal: Normal Bowel Sounds, Non Tender, Soft Extremity: Normal Capillary Refill, Normal Inspection Neurologic/Psychiatric: Alert, Oriented x3, No Motor/Sensory Deficits Skin: Normal Color, Warm/Dry Progress/Results/Core Measures Suspected Sepsis SIRS Temperature: Pulse: Respiratory Rate: Laboratory Tests 09/17/17 19:35: White Blood Count 10.4 Blood Pressure / Mean: Laboratory Tests 09/17/17 19:35: Creatinine 0.80, Platelet Count 352, Total Bilirubin 0.6 Results/Orders Lab Results Laboratory Tests Test 09/17/17 19:35 09/17/17 19:52 Range/Units White Blood Count 10.4 4.3-11.0 10^3/uL Red Blood Count 5.11 4.35-5.85 10^6/uL Hemoglobin 13.6 11.5-16.0 G/DL Hematocrit 41 35-52 % Mean Corpuscular Volume 79 L 80-99 FL Mean Corpuscular Hemoglobin 27 25-34 PG Mean Corpuscular Hemoglobin Concent 34 32-36 G/DL Red Cell Distribution Width 16.8 H 10.0-14.5 % Platelet Count 352 130-400 10^3/uL Mean Platelet Volume 9.8 7.4-10.4 FL Neutrophils (%) (Auto) 60 42-75 % Lymphocytes (%) (Auto) 32 12-44 % Monocytes (%) (Auto) 6 0-12 % Eosinophils (%) (Auto) 1 0-10 % Basophils (%) (Auto) 1 0-10 % Neutrophils # (Auto) 6.3 1.8-7.8 X 10^3 Lymphocytes # (Auto) 3.3 1.0-4.0 X 10^3 Monocytes # (Auto) 0.6 0.0-1.0 X 10^3 Eosinophils # (Auto) 0.1 0.0-0.3 10^3/uL Basophils # (Auto) 0.1 0.0-0.1 10^3/uL Sodium Level 140 135-145 MMOL/L Potassium Level 3.1 L 3.6-5.0 MMOL/L Chloride Level 106 98-107 MMOL/L Carbon Dioxide Level 25 21-32 MMOL/L Anion Gap 9 5-14 MMOL/L Blood Urea Nitrogen 14 7-18 MG/DL Creatinine 0.80 0.60-1.30 MG/DL Estimat Glomerular Filtration Rate > 60 BUN/Creatinine Ratio 18 Glucose Level 115 H 70-105 MG/DL Calcium Level 9.8 8.5-10.1 MG/DL Total Bilirubin 0.6 0.1-1.0 MG/DL Aspartate Amino Transf (AST/SGOT) 21 5-34 U/L Alanine Aminotransferase (ALT/SGPT) 21 0-55 U/L Alkaline Phosphatase 64 40-136 U/L Total Protein 8.4 H 6.4-8.2 GM/DL Albumin 4.7 H 3.2-4.5 GM/DL Urine Color YELLOW Urine Clarity CLEAR Urine pH 6 5-9 Urine Specific [place] 1.025 H 1.016-1.022 Urine Protein 1+ H NEGATIVE Urine Glucose (UA) NEGATIVE NEGATIVE Urine Ketones NEGATIVE NEGATIVE Urine Nitrite NEGATIVE NEGATIVE Urine Bilirubin NEGATIVE NEGATIVE Urine Urobilinogen NORMAL NORMAL MG/DL Urine Leukocyte Esterase 1+ H NEGATIVE Urine RBC (Auto) 2+ H NEGATIVE Urine RBC 0-2 /HPF Urine WBC 0-2 /HPF Urine Squamous Epithelial Cells 2-5 /HPF Urine Crystals NONE /LPF Urine Bacteria NONE /HPF Urine Casts NONE /LPF Urine Mucus NEGATIVE /LPF Urine Culture Indicated NO My Orders Orders - DELLA MICHAELS APRN Cbc With Automated Diff (09/17/17 19:34) Ua Culture If Indicated (09/17/17 19:34) Comprehensive Metabolic Panel (09/17/17 19:34) Ct Head Wo (09/17/17 19:34) Saline Lock/Iv-Start (09/17/17 19:34) Ns Iv 1000 Ml (Sodium Chloride 0.9%) (09/17/17 19:45) Ketorolac Injection (Toradol Injection) (09/17/17 19:45) Urine Bedside (09/17/17 19:34) Butalbital/Apap/Caffeine Tab (Fioricet T (09/17/17 20:30) Potassium Chloride (Tablet) (Klor Con Ta (09/17/17 20:30) Potassium Chloride (Tablet) (K Dur Table (09/17/17 20:25) Aspirin Chewable Tablet (Baby Aspirin Ch (09/17/17 20:32) Nitroglycerin 0.4 Mg Btl 25's (Nitrostat (09/17/17 20:43) Medications Given in ED Current Medications Medications Dose Ordered Sig/Nii Route Start Time Stop Time Status Last Admin Dose Admin Acetaminophen/ Butalbital/ Caffeine 1 tab Q4H PRN PO 09/17/17 20:30 09/17/17 20:38 1 TAB Ketorolac Tromethamine 30 mg ONCE ONCE IVP 09/17/17 19:45 09/17/17 19:46 DC 09/17/17 19:52 30 MG Potassium Chloride 40 meq ONCE ONCE PO 09/17/17 20:30 09/17/17 20:31 DC 09/17/17 20:40 40 MEQ Vital Signs/I&O 09/17/17 19:30 Temp 98.0 Pulse 114 Resp 18 B/P (MAP) 138/94 (109) Pulse Ox 99 Capillary Refill : Diagnostic Imaging Diagonstic Imaging: CT Comments NAME: [facility] REC#: [id number] PT STATUS: REG ER : 1975 PHYSICIAN: DELLA MICHAELS APRN ADMIT DATE: 09/17/17/ER Signed Date of Exam:09/17/17 CT HEAD WO PROCEDURE: CT head without contrast. TECHNIQUE: Multiple contiguous axial images were obtained through the brain without the use of intravenous contrast. INDICATION: Severe headache. FINDINGS: The ventricles are normal in size, shape, and position. There are no masses or hemorrhages. There are no extra-axial fluid collections. Paranasal sinuses are clear. IMPRESSION: Negative CT head. Dictated by: Dictated on workstation # [id number] Dict: 09/17/172003 Trans: 09/17/172011 [id number] Interpreted by: MICHAEL VIRGEN MD Electronically signed by: MICHAEL VIRGEN MD 09/17/172011 Departure Impression Primary Impression: adverse affect of medication Additional Impression: Hypokalemia Disposition: 01 HOME, SELF-CARE Condition: Stable Departure-Patient Inst. Decision time for Depature: 20:18 Referrals: [facility] [place] Primary Care Physician Patient Instructions: NO INSTRUCTIONS GIVEN DELLA MICHAELS APRN Sep 17, 2017 19:49
[2017-09-17 20:01] LABS: ALANINE AMINOTRANSFERASE 21 U/L (0-55); ALBUMIN 4.7 GM/DL (3.2-4.5); ALKALINE PHOSPHATASE 64 U/L (40-136); BILIRUBIN,TOTAL 0.6 MG/DL (0.1-1.0); BUN/CREATININE RATIO 18; CALCIUM 9.8 MG/DL (8.5-10.1); CARBON DIOXIDE 25 MMOL/L (21-32); CHLORIDE 106 MMOL/L (98-107); GFR ESTIMATED > 60; GLUCOSE 115 MG/DL (70-105); POTASSIUM 3.1 MMOL/L (3.6-5.0); SODIUM 140 MMOL/L (135-145); TOTAL PROTEIN 8.4 GM/DL (6.4-8.2)
--- NOTE | 2017-09-17 20:07 | Diagnostic Imaging Report ---
PROCEDURE: CT head without contrast. TECHNIQUE: Multiple contiguous axial images were obtained through the brain without the use of intravenous contrast. INDICATION: Severe headache. FINDINGS: The ventricles are normal in size, shape, and position. There are no masses or hemorrhages. There are no extra-axial fluid collections. Paranasal sinuses are clear. IMPRESSION: Negative CT head. Dictated by: Dictated on workstation # [id number]
[2017-09-17 20:08] LABS: BILIRUBIN,URINE NEGATIVE (NEGATIVE); CLARITY,URINE CLEAR; COLOR,URINE YELLOW; GLUCOSE, URINE (UA) NEGATIVE (NEGATIVE); KETONES,URINE NEGATIVE (NEGATIVE); LEUKOCYTE ESTERASE ,URINE 1+ (NEGATIVE); NITRITE,URINE NEGATIVE (NEGATIVE); PH,URINE 6 (5-9); PROTEIN,URINE 1+ (NEGATIVE); UROBILINOGEN,URINE NORMAL (NORMAL)
[2017-09-17 20:14] LABS: RBC,URINE 0-2 /HPF; WBC,URINE 0-2 /HPF
[2017-09-17] MEDS ORDERED: KCL 20 MEQ TAB (K-DUR) PO ONE (20:25)
[2017-09-17] MEDS ORDERED: KCL 10 MEQ TAB (MICRO K) PO ONE (20:30)
[2017-09-17] MEDS ORDERED: ACET/BUTAL/CAFF (FIORICET) TAB PO PRN (20:30)
[2017-09-17] MEDS ORDERED: ASPIRIN 81 MG CHEW (CHILDREN'S ASA) ONE (20:32)
[2017-09-17] MEDS ORDERED: NITROGLYCERIN 0.4 MG SL TABS BTL 25'S SL ONE (20:43)
[2017-09-17 21:10] VITALS: BP 134/64
[2017-09-19] MEDS ORDERED: HYDR-3990 PO (09:43)
[2017-09-19] MEDS ORDERED: DOCU-143 PO (09:43)
== END 2017-09-17 21:10 | disposition home or self-care (01) ==
LOC: EDUNIT# 19:23 → ER 19:24
DX: E87.6 Hypokalemia (principal); T36.8X5A Adverse effect of other systemic antibiotics, initial encounter; Z90.710 Acquired absence of both cervix and uterus; Z98.51 Tubal ligation status; Z87.448 Personal history of other diseases of urinary system; Z87.19 Personal history of other diseases of the digestive system
CPT/HCPCS: 36415; 70450; 80053; 81000; 85025; 96361; 96374